=== PATIENT | female | born 1960 | race Caucasian/White ===

== ENCOUNTER 2016-07-02 19:10 | Emergency (ER) | payer BC ==
[2016-07-02] MEDS ORDERED: HYDROmorphone 2 MG/ML SDV IM ONE (19:29)
[2016-07-02] MEDS ORDERED: Lidocaine 1% 20 ML MDV INFILT ONE (19:30)
[2016-07-02] MEDS ORDERED: Midazolam 1 MG/ML 2 ML SDV IV ONE (20:40)
[2016-07-02] MEDS ORDERED: Propofol 200 MG/20 ML SDV IV ONE (20:40)
[2016-07-02] MEDS ORDERED: Lactated Ringers 1,000 ML IV ONE (20:40)
[2016-07-02] MEDS ORDERED: Acetaminophen/oxyCODONE 325-5 MG Tab PO ONE (22:57)
[2016-07-02 23:19] VITALS: BP 123/62
--- NOTE | 2016-07-05 11:12 | CR ---
INDICATION: Post shoulder reduction. RIGHT SHOULDER: A single AP view of the right shoulder revealed the glenohumeral joint to appear correctly aligned. However, a single view cannot exclude the possibility of dislocation - axillary or "Y" views or transthoracic views would be necessary in addition to an AP view. There are some mild degenerative changes at the glenohumeral joint and the AC joint. Glenohumeral joint space was not well delineated. MTDD
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
== END 2016-07-02 23:05 | disposition home or self-care (01) ==
LOC: FB.ED 19:10
PROC: 0RSJXZZ Reposition Right Shoulder Joint, External Approach (ICD-10-PCS; principal; 2016-07-02)
DX: S43.014A Anterior dislocation of right humerus, initial encounter (principal); E66.9 Obesity, unspecified; W19.XXXA Unspecified fall, initial encounter; W01.0XXA Fall on same level from slipping, tripping and stumbling without subsequent striking against object, initial encounter; M25.511 Pain in right shoulder
CPT/HCPCS: 23650; 23655; 73020; 73030; 96372; 99283; A9270; J1170; J2250; J2704; J7120